=== PATIENT | male | born 1965 | race Caucasian/White ===

== ENCOUNTER 2018-04-23 15:28 | Emergency (ER) | payer BC, OTHER ==
[2018-04-23] MEDS ORDERED: BUFFERED LIDOCAINE 10 ML SYRINGE SUBQ STA (16:32)
[2018-04-23] MEDS ORDERED: DOXYCYCLINE 100 MG TABLET PO STA (16:46)
--- NOTE | 2018-04-23 16:48 | ED Physician Documentation ---
History of Present Illness - Stated complaint Stated Complaint: BUMP ON FACE - Chief complaint Chief Complaint: General - History obtained from History obtained from: Patient - Additonal information Additional information: 53-year-old male presents the emergency department with a area of infection on h is face which is swollen and there is been no active drainage. The patient denies fevers or chills. Symptoms are described as moderate. No triggering factors. No relieving factors. Symptoms are gradually worsened over the past several days Review of Systems Constitutional: denies: Fever, Chills Eyes: denies: Decreased vision, Discharge Ears: denies: Ear pain Nose: denies: Congestion Throat: denies: Sore throat : denies: Dysuria Skin: reports: Lesions Musculoskeletal: denies: Neck pain PD PAST MEDICAL HISTORY - Present Medications Home Medications: Ambulatory Orders Medication Instructions Recorded Confirmed Doxycycline Hyclate 100 mg PO BID #20 capsule 04/23/18 - Allergies Allergies/Adverse Reactions: Allergies Allergy/AdvReac Type Severity Reaction Status Date / Time No Known Drug Allergies Allergy Verified 04/23/18 15:42 PD ED PE NORMAL - General General: Alert and oriented X 3, No acute distress - HEENT HEENT: Atraumatic, PERRL, EOMI, Ears normal, Moist mucous membranes - Extremities Extremities: No deformity - Neuro Neuro: Alert and oriented X 3, Normal speech - Psych Psych: Normal affect PD ED PE EXPANDED - HEENT HEENT Visual: 1 - abscess (There is a moderate size abscess with surrounding erythema and tenderness to palpation. The redness does not extend in the periorbital area or intranasally or intraorally.) Results - Vitals Vitals: Vital Signs - 24 hr 04/23/18 15:42 Temperature 36.8 C Heart Rate 90 Respiratory 16 Rate Blood Pressure 137/89 H O2 Saturation 96 Oxygen O2 Source Room air Procedures - Abscess I&D (location) Face Preparation: Betadine, Lidocaine 1% Incision: Incised with scalpel, Purulent drainage Other: Pt tolerated well, Other (The patient tolerated procedure well, there was a large amount of purulent material drained and what appeared to be cystic material.) PD MEDICAL DECISION MAKING - ED course ED course: The patient's issue appears to be an infected cyst, and cyst was drained and the patient replaced on antibiotics. I recommended that he follow-up with primary care for a repeat evaluation and for referral to a surgeon to completely remove the cyst. The patient understands and agrees. I discussed warning signs and recommended returning to the emergency department for any worsening or any concerns. Departure - Departure Disposition: 01 Home, Self Care Clinical Impression: Infected cyst of skin Condition: Good Instructions: ED IandD Abscess Ch Prescriptions: Doxycycline Hyclate 100 mg PO BID #20 capsule Comments: [facility]. Please asked them to arrange for follow-up with a facial surgeon or ENT for removal of the cyst Please return to the emergency department immediately for any worsening or any concerns
[2018-04-23 17:02] VITALS: BP 131/91
== END 2018-04-23 17:03 | disposition home or self-care (01) ==
LOC: ED 15:28
DX: L72.9 Follicular cyst of the skin and subcutaneous tissue, unspecified (principal)
CPT/HCPCS: 10060; 99283; A9270

== ENCOUNTER 2019-03-28 16:02 | Outpatient (CLI) | payer OTHER, MEDICAID ==
--- NOTE | 2019-03-29 12:41 | XRAY Report ---
Reason: ACUTE CHEST PAIN, TRAUMA Procedure Date: 03/28/2019 Accession Number: [id number] / [id number] Procedure: XR - Chest 2 View X-Ray CPT Code: 66549 Final Report FULL RESULT: EXAM: CHEST RADIOGRAPHY EXAM DATE: 03/28/2019 04:28 PM. CLINICAL HISTORY: Acute chest pain, trauma. COMPARISON: None. TECHNIQUE: 2 views. FINDINGS: Lungs/Pleura: No focal opacities evident. No pleural effusion. No pneumothorax. Increased AP diameter on lateral radiographs with mild flattening of the diaphragms, can be seen with obstructive lung disease. Mediastinum: Heart and mediastinal contours are unremarkable. Other: Lateral radiograph demonstrates 2 cortical lucencies traversing the sternum, while the inferior one appears relatively well marginated and may represent the xiphisternal joint, the more superior lucency appears with the sternum minimally anteriorly subluxed and does not demonstrate expected appearance of the sternomanubrial joint, potential sternal fracture. IMPRESSION: Questionable irregularity of the superior sternum. Recommend CT of the thorax for further evaluation, potential sternal fracture. RADIA
== END 2019-03-28 16:03 | disposition home or self-care (01) ==
LOC: DI 16:02
PROVIDERS: ATTEND Internal Medicine
DX: R07.9 Chest pain, unspecified (principal); G89.11 Acute pain due to trauma
CPT/HCPCS: 71046

== ENCOUNTER 2019-04-05 11:58 | Outpatient (CLI) | payer OTHER, MEDICAID ==
[2019-04-05] MEDS ORDERED: IOVERSOL 320 100 ML VIAL IVP ONE ×2 (12:12→12:57)
[2019-04-05 12:17] LABS: CREATININE 0.9 mg/dL (0.6-1.2)
--- NOTE | 2019-04-05 15:21 | CT Report ---
Reason: NONDISP FX OF STERNAL END OF UNSP CLAVICLE Procedure Date: 04/05/2019 Accession Number: [id number] / [id number] Procedure: CT - CHEST W CPT Code: Final Report FULL RESULT: EXAM: CT CHEST EXAM DATE: 04/05/2019 12:49 PM. CLINICAL HISTORY: Nondisplaced fracture of sternal end of unspecified clavicle. COMPARISONS: CHEST 2 VIEW 03/28/2019 4:17 PM. TECHNIQUE: Routine helical CT imaging was performed through the chest. IV contrast: None. Reconstructions: Coronal and sagittal. In accordance with CT protocol optimization, one or more of the following dose reduction techniques were utilized for this exam: automated exposure control, adjustment of mA and/or KV based on patient size, or use of iterative reconstructive technique. FINDINGS: Lungs/Pleura: There are bilateral calcified pulmonary nodules consistent with prior granulomatous disease. No suspicious nodules, bronchial thickening, consolidation, or edema. Pulmonary vasculature is normal. No pericardial or pleural effusion. No pneumothorax. Mediastinum: Normal. No adenopathy or masses. The heart and great vessels are normal. Bones: There is a fracture through the upper sternum, minimally displaced with surrounding ongoing periosteal remodeling. Apparent lytic cavity at the site of fracture is nonspecific, potentially result of ongoing osseous remodeling but pathologic fracture would be difficult to exclude. Visualized Abdomen: Unremarkable. Other: None. IMPRESSION: Confirmation of sternal fracture. The centrally lytic appearance at the site of fracture is likely due to ongoing motion. Recommendation is for follow-up CT imaging in 6 weeks to confirm that the apparent cavity at the site of fracture is getting smaller with ongoing osseous remodeling to exclude an underlying osseous lesion such as myeloma. RADIA
== END 2019-04-05 11:59 | disposition home or self-care (01) ==
LOC: DI 11:58
PROVIDERS: ATTEND Internal Medicine
DX: S22.20XA Unspecified fracture of sternum, initial encounter for closed fracture (principal)
CPT/HCPCS: 36415; 71260; 82565; Q9967

== ENCOUNTER 2019-05-23 10:02 | Outpatient (CLI) | payer OTHER, MEDICAID ==
[2019-05-23] MEDS ORDERED: IOVERSOL 320 100 ML VIAL IVP ONE ×2 (10:14→13:52)
[2019-05-23 10:18] LABS: CREATININE 0.9 mg/dL (0.6-1.2)
--- NOTE | 2019-05-23 11:56 | CT Report ---
Reason: NONDISP FX OF STERNAL END OF UNSP CLAVICLE Procedure Date: 05/23/2019 Accession Number: [id number] / [id number] Procedure: CT - CHEST W CPT Code: Final Report FULL RESULT: EXAM: CT CHEST EXAM DATE: 05/23/2019 10:41 AM. CLINICAL HISTORY: NONDISP FX OF STERNAL END OF UNSP CLAVICLE. Sternal fracture. COMPARISONS: CHEST W/ 04/05/2019 12:46 PM. TECHNIQUE: Routine helical CT imaging was performed through the chest. IV contrast: 80 mL Optiray 320. Reconstructions: Coronal and sagittal. In accordance with CT protocol optimization, one or more of the following dose reduction techniques were utilized for this exam: automated exposure control, adjustment of mA and/or KV based on patient size, or use of iterative reconstructive technique. FINDINGS: Lungs/Pleura: Similar a few small calcified presumed granulomata. Similar mild linear scarring/atelectasis left lower lobe and RML. No significant new or enlarging pulmonary nodule. No pleural effusion or pneumothorax. Mediastinum: No pathologic lymphadenopathy. Calcified mediastinal lymph nodes are present Heart size is normal. Moderate coronary artery calcifications. Bones: Healing/healed right anterolateral third rib fracture. Persistent nonunited upper sternal body fracture with apparent lytic cavity at the site of the fracture, as before measuring up to proximally 19 mm craniocaudal (), previously 17 mm. Visualized Abdomen: Unremarkable. Other: None. IMPRESSION: 1. Similar ununited sternal body fracture with slightly increased underlying apparent lytic cavity. Pathologic fracture due to underlying bone lesion (eg,metastasis, myeloma, osteomyelitis) is a diagnostic consideration. MR could be considered for further evaluation, at clinician discretion. 2. Evidence of past granulomatous disease. 3. Other findings as noted above. RADIA
== END 2019-05-23 10:03 | disposition home or self-care (01) ==
LOC: DI 10:02
PROVIDERS: ATTEND Internal Medicine
DX: S42.01 Fracture of sternal end of clavicle (principal)
CPT/HCPCS: 36415; 71260; 82565; Q9967

== ENCOUNTER 2019-06-10 15:04 | Outpatient (CLI) | payer MEDICAID, OTHER ==
--- NOTE | 2019-06-11 16:37 | MRI Report ---
Reason: STERNUM FRACTURE Procedure Date: 06/10/2019 Accession Number: [id number] / [id number] Procedure: MRI - Chest W/O CPT Code: Final Report FULL RESULT: EXAM: MRI CHEST/STERNUM WITHOUT CONTRAST. EXAM DATE: 06/10/2019 05:54 PM CLINICAL HISTORY: STERNUM FRACTURE. Previously kicked in the chest by a cow on 02/11/2019. COMPARISON: CHEST W/ 05/23/2019 10:34 AM CHEST W/ 04/05/2019 12:46 PM CHEST 2 VIEW 03/28/2019 4:17 PM. TECHNIQUE: Multiplanar multisequence images of the sternum and anterior upper chest without contrast. FINDINGS: As seen on the previous studies, there is a nondisplaced, transverse oriented, ununited fracture at the superior aspect of the sternal body, approximately 1.5 cm distal to the sternomanubrial joint. There is abnormal T2 hyperintense and T1 hypointense marrow signal within the superior half of the sternal body. No definite bone lesion is seen. No parasternal mass or edema or fluid collection. IMPRESSION: 1. Ununited, chronic, nondisplaced fracture at the superior aspect of the sternal body. Abnormal marrow signal at the superior half of the sternal body most suggestive of marrow edema or stress reaction. In the absence of parasternal edema or fluid, osteomyelitis is thought to be less likely. No definite bone lesion is seen. RADIA
== END 2019-06-10 15:05 | disposition home or self-care (01) ==
LOC: DI 15:04
PROVIDERS: ATTEND Internal Medicine
DX: S22.22XK Fracture of body of sternum, subsequent encounter for fracture with nonunion (principal)
CPT/HCPCS: 71550

== ENCOUNTER 2022-06-05 13:53 | Emergency (ER) | payer MEDICAID, OTHER ==
[2022-06-05 14:01] VITALS: BP 152/95
--- NOTE | 2022-06-05 14:39 | ED Physician Documentation ---
History of Present Illness - Stated complaint Stated Complaint: RT CALF/ARM INJ - Chief complaint Chief Complaint: Ext Problem - Additonal information Additional information: Reliable historian. Patient is historian. 57-year-old male presents to the emergency department for evaluation of pain in his right calf. He works for a local [employer]. He often has to carry heavy boxes and lift heavy things. He reports that he was carrying a box that weighed about 40 pounds and was descending some stairs when he began to feel a pull, tightening and cramping in his right calf. The pain lasted about 10 minutes. Since then he has pain whenever he ambulates. No swelling or ecchymosis. He does have a history of intermittent cramping but nothing as severe as this. He denies any falls or trauma. Review of Systems Constitutional: denies: Fever, Chills Musculoskeletal: reports: Extremity pain Neurologic: reports: Reviewed and negative Psychiatric: reports: Reviewed and negative PD PAST MEDICAL HISTORY - Past Medical History Past Medical History: Yes Respiratory: Other : Benign prostate hypertrophy - Past Surgical History Past Surgical History: Yes Ortho: Arthroscopic surgery - Present Medications Home Medications: Ambulatory Orders Medication Instructions Recorded Confirmed Doxycycline Hyclate 100 mg PO BID #20 capsule 04/23/18 - Allergies Allergies/Adverse Reactions: Allergies Allergy/AdvReac Type Severity Reaction Status Date / Time No Known Drug Allergies Allergy Verified 06/05/22 14:01 - Social History Does the pt smoke?: Yes Smoking Status: Current every day smoker Does the pt drink ETOH?: No Does the pt have substance abuse?: No - Immunizations Immunizations are current?: Yes - POLST Patient has POLST: No PD ED PE EXPANDED - General General: Alert, No acute distress - Extremities Extremities: Right leg (Mild tenderness with activation of the posterior gastrocnemius. Mildly antalgic gait. Normal flexion extension of the knee without laxity. Normal exam of the ankle. No swelling or ecchymosis.) Results - Vitals Vitals: Vital Signs - 24 hr 06/05/22 13:57 Temperature 37.0 C Heart Rate 100 Respiratory 18 Rate Blood Pressure 152/95 H O2 Saturation 96 Oxygen O2 Source Room air PD Medical Decision Making - ED course Complexity details: d/w patient ED course: 57-year-old male presents emergency department for evaluation of acute right calf pain that began when he was descending multiple stairs while carrying a heavy box. He had no falls or trauma but he developed cramping in the posterior calf. The cramping has subsequently resolved but he now has pain with ambulation. History And exam are most significant for gastrocnemius strain. Given lack of falls or trauma I doubt cute fracture. History is also not consistent with a DVT per Wells criteria low risk. Therefore I deferred im aging. I have recommended the patient to use an Albert bandage when out of bed. He can take Tylenol or ibuprofen for discomfort. Because he half to carry heavy boxes and descend stairs frequently I have filled out an activity prescription form limiting duty until he follows up with a local walk-in clinic provider on the . If improving he can return [id number] complet ed. Departure - Departure Disposition: Home, Self Care Clinical Impression: Strain of right calf muscle Condition: Stable Record reviewed to determine appropriate education?: Yes Instructions: ED Bandage Elastic Wrap, ED Spasm Muscle Comments: Rolan you are seen today in the emergency department for pain in your right calf that began after you developed a cramp while descending stairs and carrying a heavy box. As we discussed I suspect the simply have a strain of the right calf muscle that I believe will get better over the next few days. I would like you to stay well-hydrated. You can take Tylenol or ibuprofen [id number] for discomfort. I do recommend that you wear an Albert bandage over the calf muscle when ambulating for the next few days. Because this is a work-related injury I have filled out an activity prescription form limiting your ability to stand, carry heavy packages or climb stairs. I would like you to follow-up with one of our local walk-in clinics in [place] on Thursday for reevaluation. If symptoms are markedly improving you are likely cleared to return to full duty. Please always keep your claim number and documentation available should you receive any billing regarding this ED visit. [id number].
[2022-06-05] MEDS ORDERED: IBUPROFEN 600 MG TABLET PO STA (14:40)
== END 2022-06-05 15:07 | disposition home or self-care (01) ==
LOC: ED 13:53
DX: S86.911A Strain of unspecified muscle(s) and tendon(s) at lower leg level, right leg, initial encounter (principal); X58.XXXA Exposure to other specified factors, initial encounter; Y99.0 Civilian activity done for income or pay; F17.200 Nicotine dependence, unspecified, uncomplicated
CPT/HCPCS: 99282; 99283; A9270